=== PATIENT | male | born 1965 | race Caucasian/White ===

== ENCOUNTER 2016-12-21 20:09 | Inpatient (IN) | payer OTHER ==
[~2016-12-21] VITALS: Ht 182.9 cm; Wt 91.5 kg
[2016-12-21 22:47] VITALS: PULSE 85
[2016-12-21 22:49] VITALS: Ht 182.9 cm; Wt 91.5 kg
[2016-12-21 22:55] VITALS: BP 115/73; RESP 18
[2016-12-21 23:54] VITALS: BP 117/74; RESP 18
[2016-12-22] VITALS (11 sets, daily range): BP systolic 107–125; BP diastolic 65–73; PULSE 77–92; RESP 18–20
[2016-12-22] MEDS ORDERED: NITROGLYCERIN (SL) 0.4 MG TAB SL PRN (01:00)
[2016-12-22] MEDS ORDERED: morphine 2 MG INJ IV PRN (01:00)
[2016-12-22] MEDS ORDERED: HYDROCODONE/APAP (7.5/325) TAB PO PRN (01:00)
[2016-12-22] MEDS ORDERED: KETO5DRO59 OP (07:32)
[2016-12-22] MEDS ORDERED: IBUP-1542 PO (07:32)
[2016-12-22] MEDS ORDERED: DICL50TA2 PO (07:32)
[2016-12-22 08:12] LABS: BASOPHILS % 0.3 % (0.0-2.0); EOSINOPHILS # 0.5 10^3/ul (0.0-0.5); EOSINOPHILS % 4.1 % (0.0-7.0); HEMATOCRIT 38.3 % (42.0-52.0); HEMOGLOBIN 12.4 g/dl (14.0-18.0); LYMPHOCYTES # 1.6 10^3/ul (0.8-2.9); LYMPHOCYTES % 13.6 % (15.0-51.0); MEAN CORPUSCULAR HEMOGLOBIN 29.5 pg (29.0-33.0); MEAN CORPUSCULAR HGB CONC 32.4 g/dl (32.0-37.0); MEAN CORPUSCULAR VOLUME 91.2 fl (82.0-101.0); MEAN PLATELET VOLUME 9.9 fl (7.4-10.4); MONOCYTE # 1.1 10^3/ul (0.3-0.9); MONOCYTES % 8.7 % (0.0-11.0); NEUTROPHIL # 8.8 10^3/ul (1.6-7.5); PLATELET COUNT 548 10^3/UL (140-415); RED CELL DISTRIBUTION WIDTH 13.8 % (11.5-14.5); WHITE BLOOD COUNT 12.1 10^3/ul (4.8-10.8)
[2016-12-22 08:32] LABS: ALBUMIN 3.8 g/dl (3.3-4.9); BILIRUBIN,INDIRECT 0.3 mg/dl (0-1.1); BILIRUBIN,TOTAL 0.3 mg/dl (0.2-1.3); CALCIUM 9.8 mg/dl (8.4-10.2); CHOL/HDL RATIO 7.9 RATIO; CREATININE 0.66 mg/dl (0.61-1.24); POTASSIUM 4.9 mmol/L (3.5-5.1); TOTAL PROTEIN 7.6 g/dl (6.1-8.1)
[2016-12-22] MEDS: NAPROXEN 500 MG TAB PO SCH ×2 (09:19→21:50)
--- NOTE | 2016-12-22 10:51 | PN ---
Date/Time of Note Date/Time of Note DATE: 12/22/16 TIME: 10:46 Assessment/Plan VTE Prophylaxis VTE Prophylaxis Intervention: SCD's Lines/Catheters IV Catheter Type (from Nrsg): Saline Lock Assessment/Plan Chief Complaint/Hosp Course 51 y/o with 1. Chest pain Pericarditis with mod - large Pericardial effusion likely viral after Bronchitis/pneumonia, r/o autoimmune/HIV/ TB 2 Elevated LFT with alk phos r/o Hepatitis 3 Chronic back pain with DJD 4 Smoker Recs - Will check Repeat ECHO, pt might need Pericardiocentesis - Add colchine to NSAID - Add pepcid - esr, crp, JAMILA, HIV, Hep panel, Chest Xray , PPD - Spoke to Dr Vail who will see patient Problems: Subjective 24 Hr Interval Summary Free Text/Dictation Some chest pain when take deep breath No sob Exam/Review of Systems Vital Signs Vitals Vital Signs Date Time Temp Pulse Resp B/P Pulse Ox O2 Delivery O2 Flow Rate FiO2 12/22/16 08:25 92 12/22/16 07:49 98.7 18 115/72 97 Intake and Output 12/21/16 12/21/16 12/22/16 15:00 23:00 07:00 Intake Total 120 ml Balance 120 ml Exam Gen:awake,alert Neck:supple CVS:Regular rate and rthym Lungs:decreased breath sounds at bases Abdomen:soft, non tender Ext : no edema Results Result Diagram: 12/22/16 0715 12/22/16 0711 Results 24 hrs Laboratory Tests Test 12/22/16 07:11 12/22/16 07:15 Sodium Level 139 Potassium Level 4.9 Chloride Level 102 Carbon Dioxide Level 30 Anion Gap 12 Blood Urea Nitrogen 15 Creatinine 0.66 Glucose Level 102 Calcium Level 9.8 Total Bilirubin 0.3 Direct Bilirubin 0.00 Indirect Bilirubin 0.3 Aspartate Amino Transf (AST/SGOT) 29 Alanine Aminotransferase (ALT/SGPT) 94 H Alkaline Phosphatase 203 H Total Protein 7.6 Albumin 3.8 Globulin 3.80 H Albumin/Globulin Ratio 1.00 Triglycerides Level 94 Cholesterol Level 166 LDL Cholesterol, Calculated 126 HDL Cholesterol 21 L Cholesterol/HDL Ratio 7.9 White Blood Count 12.1 H Red Blood Count 4.20 L Hemoglobin 12.4 L Hematocrit 38.3 L Mean Corpuscular Volume 91.2 Mean Corpuscular Hemoglobin 29.5 Mean Corpuscular Hemoglobin Concent 32.4 Red Cell Distribution Width 13.8 Platelet Count 548 H Mean Platelet Volume 9.9 Neutrophils % 73.0 Lymphocytes % 13.6 L Monocytes % 8.7 Eosinophils % 4.1 Basophils % 0.3 Nucleated Red Blood Cells % 0.0 Neutrophils # 8.8 H Lymphocytes # 1.6 Monocytes # 1.1 H Eosinophils # 0.5 Basophils # 0.0 Nucleated Red Blood Cells # 0.0 Medications Medications Current Medications Naproxen (Naprosyn) 500 mg BID PO Last administered on 12/22/16t 09:19; Admin Dose 500 MG; Start 12/22/16 at 09:00 Acetaminophen/ Hydrocodone Bitart ([place] (7.5-325)) 1 tab Q6H PRN PO PAIN LEVEL 4-6; Start 12/22/16 at 01:00 Morphine Sulfate (morphine) 2 mg Q4H PRN IV SEVERE PAIN LEVEL 7-10; Start 12/22 at 01:00 Nitroglycerin (Nitroglycerin (Sl Tab) 0.4 Mg) 1 tab Q5M PRN SL ANGINA; Start at 01:00 Famotidine (Pepcid) 20 mg BID NGT ; Start 12/22/16 at 11:00; Status UNV Colchicine (Colchicine) 0.6 mg BID PO ; Start 12/22/16 at 11:00; Status UNV Ondansetron HCl (Zofran Inj) 4 mg Q4H PRN IV NAUSEA AND/OR VOMITING; Start at 11:00; Status UNV JIMI BYRNE MD Dec 22, 2016 10:51
[2016-12-22] MEDS: FAMOTIDINE 20 MG TAB PO SCH ×2 (11:00→21:00)
[2016-12-22] MEDS ORDERED: ONDANSETRON 4 MG INJ IV PRN (11:00)
[2016-12-22] MEDS ORDERED: ZOLPIDEM 5 MG TAB PO PRN (11:00)
[2016-12-22] MEDS ORDERED: DOCUSATE SODIUM 100 MG CAP PO PRN (11:00)
[2016-12-22] MEDS ORDERED: MAGNESIUM HYDROXIDE 30ML CUP PO PRN (11:00)
[2016-12-22] MEDS: COLCHICINE 0.6 MG TAB PO SCH ×2 (12:00→21:44)
--- NOTE | 2016-12-22 12:55 | RADRPT ---
PROCEDURE: Chest radiograph CLINICAL INDICATION: Pericardial effusion. Concern for pleural effusion. COMPARISON: None relevant listed. TECHNIQUE: Single frontal chest radiograph. FINDINGS: No pneumonia. Small left pleural effusion. The cardiac silhouette is rounded, consistent with provided history of pleural effusion. The heart is not enlarged. No suspicious bone lesion. IMPRESSION: Small left pleural effusion. RPTAT: [facility] Physician Cash Date Time Electronically viewed and signed by Derick Rodarte Physician on 12/22/2016 12:55 LG/
[2016-12-22 13:29] LABS: HAAIG REFLEX REFLEX FILED
--- NOTE | 2016-12-22 13:33 | HP ---
DATE OF ADMISSION: 12/21/2016 REASON FOR ADMISSION: Transfer from [facility] for pericardial effusion. HISTORY OF PRESENT ILLNESS: This is a 51-year-old male with a past medical history of chronic back pain, who initially presented to [facility] on December 09 secondary to complaining of chest pain. He was having some fevers 10 days ago. At that time, he underwent stress echocardiography, which showed no problems. He was discharged home with Cardiology. He presented again on December 19 to [facility] complaining of pleuritic chest pain with shortness of breath, dizziness and imaging. Echo at that time, showed the presence of [id number] pericardial effusion and by CT, which was not present on the prior admission. He was admitted with a presumptive diagnosis of pericarditis. According to the patient when he was discharged on December 09 he was discharged with an antibiotic for 7 days. He took the antibiotic course for 7 days and after the 3rd day, he started having fevers again and having chest pain and shortness of breath and came in to the emergency department. At [facility], he was started on naproxen. He took it for 3 days and after that, according to the patient, they repeated echocardiogram and which showed that the pericardial effusion was the same and was sent in to [facility] for insurance reasons. PAST MEDICAL HISTORY: 1. The patient has keratoconus of the eyes, status post surgery. 2. Chronic back pain with a CT of the lumbar spine that was done on December 19 showing multilevel degenerative changes, severe right foraminal stenosis at L5-S1, indeterminate 90 mm osseous lesion at S1, bilateral pleural effusions, left renal cyst and small right renal lesion, which is probably a small cyst. ALLERGIES: NONE. MEDICATIONS: Taking at home were: 1. Ketotifen 0.025 percent ophthalmic solution. 2. Baclofen 25 mg capsule 100 mg b.i.d. p.r.n. back pain. 3. Ibuprofen 600 mg oral t.i.d., which was started at [facility]. PAST SURGICAL HISTORY: Patient had eye surgery for keratoconus. SOCIAL HISTORY: Patient is a smoker, smokes 10-14 cigarettes per day, but has cut down. Denies any history of alcohol, any drug abuse. FAMILY HISTORY: No history of cardiac disease in the family. REVIEW OF SYSTEMS: Patient denied any sick contacts. Denies any joint pains. Denies any headache, any blurry vision. Denies any ear problems. Patient complains of pleuritic chest pain associated with deep breath, and some shortness of breath. Denies any dizziness currently. Denies any nausea, vomiting, diarrhea. Denies any hematemesis or any melena. No bright red blood per rectum. Denies any focal neurological deficits. PHYSICAL EXAMINATION: GENERAL: Awake, alert, oriented x4. Does not appear to be in any acute distress. Very pleasant male. VITAL SIGNS: Temperature 98.7, heart rate 86, respirations 18, blood pressure 115/72, saturating 97 percent on room air. HEENT: Pupils equal, round, reactive to light. NECK: Supple. No JVD. HEART: Regular rate, rhythm. No murmur, rub, or gallop. LUNGS: Clear to auscultate bilaterally. ABDOMEN: Soft, nontender, nondistended. Positive normoactive bowel sounds. EXTREMITIES: No clubbing, cyanosis, or edema. DIAGNOSTIC DATA: BMP within normal limits. BUN of 15, creatinine 0.66. AST of 29, ALT of 94, alkaline phosphatase 203, albumin 3.8. 21. White count 12.1, hemoglobin 12.4, platelet count 548. CT of the lumbar spine at [facility] showed no evidence of acute fracture, normal alignment, multilevel degenerative changes, severe right foraminal stenosis L5-S1 suggestive of a neural impingement, indeterminate 19 mm osseus lesions of S1, left renal cyst and small right renal lesion, which is a small cyst, suggestion of bilateral pleural effusions. The patient also had a CT of the chest, abdomen and pelvis with contrast that showed a pericardial effusion was present measuring 2.5 cm in thickness, heart is normal in size, atelectasis. No lobar consolidations. No focal lesions were seen within the liver. Gallbladder was contracted. Chest x-ray showed enlarged cardiac silhouette. ASSESSMENT: This is a 51-year-old male presenting with: 1. Chest pain, shortness of breath, dizziness. The patient had a stress echocardiogram that was negative for any ischemia. The patient had troponins that were negative. The patient has echo and a CT that showed a [id number] pericardial effusion, which is 2.5 cm in thickness. Patient had bronchitis and pneumonia before, that could have led to pericarditis. Etiology is unknown. Patient does not have any hemodynamic compromise at this point. 2. Elevated LFTs. The patient had elevated LFTs with elevated alk phos. 3. Leukocytosis, likely secondary to #1. 4. Chronic back pain, with a history of multilevel degenerative disk disease. 5. History of keratoconus of the eyes. PLAN: At this period of time, patient is admitted to [facility]. The patient is currently on naproxen, which is causing him to have heartburn. We will start the patient on colchicine. We will repeat the echocardiogram. Dr. Vail with cardiology has already been informed. The patient might need pericardiocentesis based on the pericardial effusion on the echo. Rest of the treatment will depend on the patient's hospitalization course. Dictated By: MD FREDO Loza/zoey/clara /Document#: [id number]
[2016-12-22 14:33] LABS: TROPONIN-I < 0.012 ng/ml (0.00-0.12)
[2016-12-22 14:44] LABS: C-REACTIVE PROTEIN 17.6 mg/dl (0.0-0.9)
[2016-12-22 14:50] LABS: HEPATITIS B CORE ANTIBODY NEGATIVE (NEGATIVE)
[2016-12-22] MEDS ORDERED: CALCIUM CARBONATE 500 MG CHEW TAB PO PRN (20:30)
[2016-12-22] MEDS ORDERED: FAMOTIDINE 20 MG TAB PO SCH (21:00)
[2016-12-22 21:06] LABS: TIME 2100
[2016-12-23] VITALS (11 sets, daily range): BP systolic 113–140; BP diastolic 60–70; PULSE 75–95; RESP 16–18
--- NOTE | 2016-12-23 00:09 | CONS ---
DATE OF ADMISSION: 12/21/2016 DATE OF CONSULTATION: 12/22/2016 REFERRING PHYSICIAN: Maria C Coker MD REASON FOR CONSULTATION: Persistent, vvtgnzbx-mv-nyevh pericardial effusion in the context of likely viral pericarditis. PATIENT'S PROFILE AND HISTORY OF PRESENT ILLNESS: The patient is a 51-year-old [place] male with a few medical conditions. Two weeks ago he was admitted to another hospital with chest pain and fever. An echocardiogram at the other hospital ([place]) documented apparently circumferential, moderate size to large pericardial effusion. The working diagnosis was of likely viral pericarditis or autoimmune pericarditis. The patient was started on treatment with NSAIDs. The patient's condition either gradually improved somewhat or none. A computed tomography of the chest was also done, confirming the oqypvyeh-pm-eaycu pericardial effusion. The patient was initially treated with antibiotic for a week, without resolution of the condition. In fact, according to the admitting physician, fevers started about that time. With the agreement of the patient, a decision at [facility] was made to transfer to [facility]. REVIEW OF SYSTEMS: At this time, the patient appears stable. He has mild "aches and pains," none over the cardiac area but in other parts of the chest. He feels slightly weak or below his normal level of health. He also appears to be concerned about the condition. The patient denies chest pain, shortness of breath, orthopnea (needs to sleep elevated), or lower extremity edema. His "blood work" by the other hospital and subsequently here documents abnormal liver function tests. Review of systems as described above. PAST MEDICAL HISTORY: The patient has spinal disorder at several levels, with multilevel degenerative spinal changes, severe in the lumbosacral area. He also has asymptomatic bilateral pleural effusions, as well as renal cysts. MEDICATIONS: Naproxen 500 mg twice a day. ALLERGIES: NO KNOWN DRUG ALLERGIES. HOME MEDICATIONS: 1. Ketotifen 0.025 percent ophthalmic solution (for keratoconus of eyes). 2. Baclofen mg twice a day. 3. Ibuprofen 600 mg 3 times a day, which was started in [place] prior to transfer. FAMILY MEDICAL HISTORY: Noncontributory. SOCIAL HISTORY: The patient is a chronic cigarette smoker, of moderate degree (10-14 cigarettes per day). He denies history of alcohol or drug use. His marital status was not inquired. PAST SURGICAL HISTORY: Eye surgery bilaterally for keratoconus. PHYSICAL EXAMINATION: GENERAL APPEARANCE: The patient is an athletic-appearing, middle- aged man, who is in no acute distress. VITAL SIGNS: Height 6 feet, weight 91.5 kg. Blood pressure 122/69 mmHg, heart rate 82 bpm, regular (variable), temperature is 98.2 degrees F. SKIN: Warm and dry, not clammy. HEENT: Normocephalic. Eyes: FILIBERTO. Conjunctivae and eyelids are normal. Sclerae are anicteric. Oral mucosa moist, with no cyanosis. NECK: Supple, without thyromegaly or lymphadenopathy. Trachea is midline. There is no jugular vein distention. Carotid pulses are normal and equal, with no bruits. There is no evidence in sitting position of elevated jugular vein pressure. CHEST: Symmetric, with equal expansion. LUNGS: Clear to auscultation, with no rales or wheezes. HEART: PMI not palpated. There is no left precordial systolic heave. Regular rate and rhythm. Normal S1, S2. There is no murmur or rub. ABDOMEN: Soft, nontender, nondistended. EXTREMITIES: No edema. Peripheral pulses are palpable in all limbs. LABORATORY: EKG: A full 12-lead EKG is not available in the chart. On the monitor, he is normal sinus rhythm, with no arrhythmia and with normal QRS configuration. Hemoglobin 12.4, hematocrit 38.3 percent, WBC 12,100. All chemistry (electrolytes, renal function tests) have normal values. Anion gap is 12. Glucose is 102. Bilirubin is normal. AST and ALT are elevated approximately 3 times over the upper normal limits (fact known before admission). Serum proteins are normal. Cholesterol is 166, LDL 126, triglycerides 94. ASSESSMENT: 1. Persistent, moderate (to large?) pericarditis of unknown etiology (presumed viral). 2. Mild weakness and malaise due to the condition. 3. Abnormal transaminases. RECOMMENDATIONS: 1. Continue Naproxen 500 mg twice a day. (Ibuprofen 600-800 mg 3 times a day was also an excellent choice that was used before). 2. Add colchicine twice a day. 3. Add H2 blockers, Tagamet, ranitidine or famotidine to prevent GI irritation. 4. Consider proton pump inhibitors. Thank you very much for asking me to participate in the care of this patient. Effusive pericarditis of this type, unfortunately, may persist quite long. Some of the cases which are accompanied with moderate or large effusion may see persistent pericardial effusion, even after the symptoms are relieved. As long as the patient has no negative hemodynamic changes, the pericardial effusion should not be tapped unless there is a suspicion for a different etiology that has to be elucidated. Dictated By: ROBBIE YANG MD /zoey/maria fernanda /Document#: [id number] CC: Maria C Coker MD;*EndCC*
[2016-12-23 07:38] LABS: BASOPHILS % 0.3 % (0.0-2.0); EOSINOPHILS # 0.4 10^3/ul (0.0-0.5); EOSINOPHILS % 3.6 % (0.0-7.0); HEMATOCRIT 37.9 % (42.0-52.0); HEMOGLOBIN 12.4 g/dl (14.0-18.0); LYMPHOCYTES # 1.6 10^3/ul (0.8-2.9); LYMPHOCYTES % 13.6 % (15.0-51.0); MEAN CORPUSCULAR HGB CONC 32.7 g/dl (32.0-37.0); MEAN CORPUSCULAR VOLUME 91.5 fl (82.0-101.0); MEAN PLATELET VOLUME 9.7 fl (7.4-10.4); MONOCYTES % 9.1 % (0.0-11.0); NEUTROPHIL # 8.4 10^3/ul (1.6-7.5); NEUTROPHILS % 72.9 % (39.0-77.0); PLATELET COUNT 556 10^3/UL (140-415); RED BLOOD COUNT 4.14 10^6/ul (4.70-6.10); RED CELL DISTRIBUTION WIDTH 13.5 % (11.5-14.5); WHITE BLOOD COUNT 11.5 10^3/ul (4.8-10.8)
[2016-12-23 08:01] LABS: ALBUMIN 3.9 g/dl (3.3-4.9); ALBUMIN/GLOBULIN RATIO 1.05; BILIRUBIN,INDIRECT 0.1 mg/dl (0-1.1); BILIRUBIN,TOTAL 0.1 mg/dl (0.2-1.3); CALCIUM 9.4 mg/dl (8.4-10.2); CREATININE 0.67 mg/dl (0.61-1.24); POTASSIUM 4.7 mmol/L (3.5-5.1); TOTAL PROTEIN 7.6 g/dl (6.1-8.1)
[2016-12-23 08:06] LABS: MAGNESIUM 2.3 mg/dl (1.7-2.5); PHOSPHORUS 4.4 mg/dl (2.5-4.9)
[2016-12-23] MEDS: NAPROXEN 500 MG TAB PO SCH ×2 (08:10→20:50)
[2016-12-23] MEDS: COLCHICINE 0.6 MG TAB PO SCH ×2 (08:10→20:50)
[2016-12-23] MEDS: FAMOTIDINE 20 MG TAB PO SCH ×2 (08:11→20:51)
--- NOTE | 2016-12-23 10:01 | PN ---
Date/Time of Note Date/Time of Note DATE: 12/23/16 TIME: 10:00 Assessment/Plan VTE Prophylaxis VTE Prophylaxis Intervention: ambulation Lines/Catheters IV Catheter Type (from Nrs): Saline Lock Urinary Cath still in place: No Assessment/Plan Chief Complaint/Hosp Course 51 y/o with 1. Chest pain Pericarditis with mod - large Pericardial effusion likely viral after Bronchitis/pneumonia, r/o autoimmune/HIV/ TB 2 Elevated LFT with alk phos Hep panel negative 3 Chronic back pain with DJD 4 Smoker Recs - c/w Naproxen and Colchine - c/w Pepcid - Spoke to Dr Aguilar klein f/u on repeat ECHO today - ESR , CRP elevated, HIV and Hep panel negative Problems: Subjective 24 Hr Interval Summary Free Text/Dictation Chest pain is resolved Exam/Review of Systems Vital Signs Vitals Vital Signs Date Time Temp Pulse Resp B/P Pulse Ox O2 Delivery O2 Flow Rate FiO2 12/23/16 08:24 88 12/23/16 08:07 98.2 18 117/69 98 12/22/16 21:30 Room Air Intake and Output 12/22/16 12/22/16 12/23/16 15:00 23:00 07:00 Intake Total 800 ml 240 ml Balance 800 ml 240 ml Exam Gen:awake,alert Neck:supple CVS:Regular rate and rthym Lungs:decreased breath sounds at bases Abdomen:soft, non tender Ext : no edema Results Result Diagram: 12/23/16 0724 12/23/16 0724 Results 24 hrs Laboratory Tests Test 12/22/16 12:30 12/22/16 12:39 12/22/16 20:55 12/23/16 07:24 Troponin I < 0.012 C-Reactive Protein 17.6 H Hepatitis B Surface Antigen NEGATIVE Hepatitis B Core Total Antibody NEGATIVE Hepatitis C Antibody NEGATIVE HIV (1&2) Antibody NEGATIVE Erythrocyte Sedimentation Rate 68 H TB Skin Test Induration Pending TB Skin Test Administer Date 12/22/2016 TB Skin Test Administer Time 2100 TB Skin Test Injection Site Right Upper Forearm White Blood Count 11.5 H Red Blood Count 4.14 L Hemoglobin 12.4 L Hematocrit 37.9 L Mean Corpuscular Volume 91.5 Mean Corpuscular Hemoglobin 30.0 Mean Corpuscular Hemoglobin Concent 32.7 Red Cell Distribution Width 13.5 Platelet Count 556 H Mean Platelet Volume 9.7 Neutrophils % 72.9 Lymphocytes % 13.6 L Monocytes % 9.1 Eosinophils % 3.6 Basophils % 0.3 Nucleated Red Blood Cells % 0.0 Neutrophils # 8.4 H Lymphocytes # 1.6 Monocytes # 1.0 H Eosinophils # 0.4 Basophils # 0.0 Nucleated Red Blood Cells # 0.0 Sodium Level 141 Potassium Level 4.7 Chloride Level 107 Carbon Dioxide Level 25 Anion Gap 14 Blood Urea Nitrogen 18 Creatinine 0.67 Glucose Level 96 Calcium Level 9.4 Phosphorus Level 4.4 Magnesium Level 2.3 Total Bilirubin 0.1 L Direct Bilirubin 0.00 Indirect Bilirubin 0.1 Aspartate Amino Transf (AST/SGOT) 22 Alanine Aminotransferase (ALT/SGPT) 76 H Alkaline Phosphatase 185 H Total Protein 7.6 Albumin 3.9 Globulin 3.70 H Albumin/Globulin Ratio 1.05 Medications Medications Current Medications Naproxen (Naprosyn) 500 mg BID PO Last administered on 12/23/16 08:10; Admin Dose 500 MG; Start 12/22/16 at 09:00 Acetaminophen/ Hydrocodone Bitart ([place] (7.5-325)) 1 tab Q6H PRN PO PAIN LEVEL 4-6; Start 12/22/16 at 01:00 Morphine Sulfate (morphine) 2 mg Q4H PRN IV SEVERE PAIN LEVEL 7-10; Start 12/22 at 01:00 Nitroglycerin (Nitroglycerin (Sl Tab) 0.4 Mg) 1 tab Q5M PRN SL ANGINA; Start at 01:00 Famotidine (Pepcid) 20 mg BID PO ; Start 12/22/16 at 11:00 Colchicine (Colchicine) 0.6 mg BID PO Last administered on 12/23/16 08:10; Admin Dose 0.6 MG; Start 12/22/16 at 12:00 Ondansetron HCl (Zofran Inj) 4 mg Q4H PRN IV NAUSEA AND/OR VOMITING; Start at 11:00 Docusate Sodium (Colace) 100 mg Q12H PRN PO CONSTIPATION; Start 12/22/16 at 11: 00 Magnesium Hydroxide (Milk Of Mag) 30 ml DAILY PRN PO CONSTIPATION; Start at 11:00 Zolpidem Tartrate (Ambien) 5 mg QHS PRN PO SLEEP; Start 12/22/16 at 11:00 Calcium Carbonate (Tums) 500 mg QID PRN PO HEARTBURN; Start 12/22/16 at 20:30 JIMI BYRNE MD Dec 23, 2016 10:01
--- NOTE | 2016-12-23 17:28 | CONS ---
Date/Time of Note Date/Time of Note DATE: 12/23/16 TIME: 17:20 Assessment/Plan Assessment/Plan Chief Complaint/Hosp Course IMP: 1. Pericardial effusion-by osh echo 2.Chest pain-improved. Per report secondary to pericarditis 3.HTN-borderline 4.Malaise 5. Increased LFT's 6. Pleural effusion-small REcc: -Tele -serial ecg's -will f/u echo to assess need for possible pericardiocentesis but currently no signs of tamponade -Continue current colchicine/NSAIDS Problems: Consultation Date/Type/Reason Admit Date/Time Dec 21, 2016 at 22:29 Initial Consult Date 12/22/2016 Type of Consultation: Cardiology Reason for Consultation chest pain Referring Provider: JIMI BYRNE MD Exam/Review of Systems Vital Signs Vitals Vital Signs Date Time Temp Pulse Resp B/P Pulse Ox O2 Delivery O2 Flow Rate FiO2 12/23/16 16:20 98.1 91 18 140/66 99 12/22/16 21:30 Room Air Intake and Output 12/22/16 12/22/16 12/23/16 15:00 23:00 07:00 Intake Total 800 ml 240 ml Balance 800 ml 240 ml Exam Review of Systems: CONSTITUTIONAL: No fevers, chills. PULMONARY: No sob CARDIOVASCULAR: No chest pain/palpitations GASTROINTESTINAL: No nausea/vomiting. GENITOURINARY: No hematuria/dysuria. MUSCULOSKELETAL: No myagias/arthalgias. PSYCHIATRIC: The patient denies depression. NEUROLOGIC: No weakness Constitutional: alert, oriented Psych: no complaints Head: normocephalic ENMT: mucosa pink and moist Neck: jvd (9 cm water), supple Respiratory: clear to auscultation Cardiovascular: regular rate and rhythm Gastrointestinal: non-tender, soft Musculoskeletal: muscle tone (normal) Extremities: edema (none) Neurological: other (No focal deficits) Results Result Diagram: 12/23/16 0724 12/23/16 0724 Results 24 hrs Laboratory Tests Test 12/22/16 20:55 12/23/16 07:24 TB Skin Test Induration Pending TB Skin Test Administer Date 12/22/2016 TB Skin Test Administer Time 2100 TB Skin Test Injection Site Right Upper Forearm White Blood Count 11.5 H Red Blood Count 4.14 L Hemoglobin 12.4 L Hematocrit 37.9 L Mean Corpuscular Volume 91.5 Mean Corpuscular Hemoglobin 30.0 Mean Corpuscular Hemoglobin Concent 32.7 Red Cell Distribution Width 13.5 Platelet Count 556 H Mean Platelet Volume 9.7 Neutrophils % 72.9 Lymphocytes % 13.6 L Monocytes % 9.1 Eosinophils % 3.6 Basophils % 0.3 Nucleated Red Blood Cells % 0.0 Neutrophils # 8.4 H Lymphocytes # 1.6 Monocytes # 1.0 H Eosinophils # 0.4 Basophils # 0.0 Nucleated Red Blood Cells # 0.0 Sodium Level 141 Potassium Level 4.7 Chloride Level 107 Carbon Dioxide Level 25 Anion Gap 14 Blood Urea Nitrogen 18 Creatinine 0.67 Glucose Level 96 Calcium Level 9.4 Phosphorus Level 4.4 Magnesium Level 2.3 Total Bilirubin 0.1 L Direct Bilirubin 0.00 Indirect Bilirubin 0.1 Aspartate Amino Transf (AST/SGOT) 22 Alanine Aminotransferase (ALT/SGPT) 76 H Alkaline Phosphatase 185 H Total Protein 7.6 Albumin 3.9 Globulin 3.70 H Albumin/Globulin Ratio 1.05 Medications Medications Current Medications Naproxen (Naprosyn) 500 mg BID PO Last administered on 12/23/16 08:10; Admin Dose 500 MG; Start 12/22/16 at 09:00 Acetaminophen/ Hydrocodone Bitart ([place] (7.5-325)) 1 tab Q6H PRN PO PAIN LEVEL 4-6; Start 12/22/16 at 01:00 Morphine Sulfate (morphine) 2 mg Q4H PRN IV SEVERE PAIN LEVEL 7-10; Start 12/22 at 01:00 Nitroglycerin (Nitroglycerin (Sl Tab) 0.4 Mg) 1 tab Q5M PRN SL ANGINA; Start at 01:00 Famotidine (Pepcid) 20 mg BID PO ; Start 12/22/16 at 11:00 Colchicine (Colchicine) 0.6 mg BID PO Last administered on 12/23/16 08:10; Admin Dose 0.6 MG; Start 12/22/16 at 12:00 Ondansetron HCl (Zofran Inj) 4 mg Q4H PRN IV NAUSEA AND/OR VOMITING; Start at 11:00 Docusate Sodium (Colace) 100 mg Q12H PRN PO CONSTIPATION; Start 12/22/16 at 11: 00 Magnesium Hydroxide (Milk Of Mag) 30 ml DAILY PRN PO CONSTIPATION; Start at 11:00 Zolpidem Tartrate (Ambien) 5 mg QHS PRN PO SLEEP; Start 12/22/16 at 11:00 Calcium Carbonate (Tums) 500 mg QID PRN PO HEARTBURN; Start 12/22/16 at 20:30 MONA CHAVEZ Dec 23, 2016 17:28
--- NOTE | 2016-12-23 18:34 | RADRPT ---
Echocardiogram Report Patient Name: JENNIFER SAHU Gender: Male Date: 1965 Study Date: 22-Dec-2016 [employer] Analyst: Shantanu Aleman [facility] Location: 5541 Ref. Physician: CHU VARGAS Quality: Good Procedures: Transthoracic echocardiogram with complete 2D, M-Mode, and doppler examination. Indications: Pericarditis. 2D/M Mode Doppler Measurement Value Normal Ranges Measurement Value Normal Ranges LVIDd 2D 5.1 3.5 - 5.6 cm AV Peak Rickie 1.3 m/sec LVIDs 2D 2.5 2.1 - 4.1 cm AV Peak PG 6.5 mmHg LVPWd 2D 1.2 0.6 - 1.1 cm LVOT Peak Rickie 0.9 m/sec IVSd 2D 1.2 0.6 - 1.1 cm LVOT Peak PG 3.1 mmHg AoR Diam 2D 2.8 2.0 - 3.7 cm MV E Peak Rickie 0.6 m/sec EDV 2D 125.5 cm3 MV A Peak Rickie 0.8 m/sec ESV 2D 16.4 cm3 MV E/A 0.8 LA Dimen 2D 3.4 2.3 - 4.0 cm MV Decel Time 201 msec MV Decel Dixie 3 MV E/A 0.8 TR Peak Rickie 2.6 m/sec TR Peak PG 27.7 mmHg RVSP 31.0 mmHg Findings Left Ventricle: Normal left ventricular systolic function. Normal left ventricular cavity size. Mild concentric left ventricular hypertrophy. Ejection fraction is visually estimated at 60 %. Tissue Doppler/Mitral Doppler indices are consistent with impaired relaxation (Stage I diastolic dysfunction). Right Ventricle: Normal right ventricular size. Normal right ventricular systolic function. Left Atrium: The left atrium is normal in size. Right Atrium: The right atrium is normal in size. Mitral Valve: Normal appearance and function of the mitral valve with trace physiologic regurgitation. Aortic Valve: Normal appearance of the aortic valve. No significant aortic stenosis or insufficiency. Tricuspid Valve: Normal appearance of the tricuspid valve. Estimated peak PA systolic pressure 31 mmHg. There is mild tricuspid regurgitation. Pulmonic Valve: Normal pulmonic valve appearance. There is trace pulmonic regurgitation. Pericardium: Small pericardial effusion. Aorta: Normal aortic root. IVC: Normal size and normal respiratory collapse consistent with normal right atrial pressure. Conclusions 1.Normal left ventricular systolic function. Normal left ventricular cavity size. Mild concentric left ventricular hypertrophy. Ejection fraction is visually estimated at 60 %. Tissue Doppler/Mitral Doppler indices are consistent with impaired relaxation (Stage I diastolic dysfunction). 2.Normal right ventricular size. Normal right ventricular systolic function. 3.Normal appearance and function of the mitral valve with trace physiologic regurgitation. 4.Normal appearance of the tricuspid valve. Estimated peak PA systolic pressure 31 mmHg. There is mild tricuspid regurgitation. 5.Normal pulmonic valve appearance. There is trace pulmonic regurgitation. 6.Small to moderate pericardial effusion. Electronically Signed By: Ruben Sheikh 23-Dec-2016 18:33:36 -0700 Patient Name: JENNIFER SAHU Study Date: 22-Dec-[id number]
[2016-12-24] VITALS (10 sets, daily range): BP systolic 112–134; BP diastolic 59–74; PULSE 83–94; RESP 16–18
[2016-12-24] MEDS: COLCHICINE 0.6 MG TAB PO SCH (08:20)
[2016-12-24] MEDS: NAPROXEN 500 MG TAB PO SCH (08:20)
[2016-12-24] MEDS: FAMOTIDINE 20 MG TAB PO SCH (08:24)
--- NOTE | 2016-12-24 09:49 | PN ---
Date/Time of Note Date/Time of Note DATE: 12/24/16 TIME: 09:49 Assessment/Plan VTE Prophylaxis VTE Prophylaxis Intervention: ambulation Lines/Catheters IV Catheter Type (from Nrsg): Saline Lock Urinary Cath still in place: No Assessment/Plan Chief Complaint/Hosp Course 51 y/o with 1. Chest pain Pericarditis with mod - large Pericardial effusion likely viral after Bronchitis/pneumonia, r/o autoimmune/HIV/ TB 2 Elevated LFT with alk phos Hep panel negative 3 Chronic back pain with DJD 4 Smoker Recs - c/w Naproxen and Colchine - c/w Pepcid - Spoke to Dr Sheikh ; ECHO shows small to mod effusion, no need to pericardiocentesis - d/c home today to f/u in office in 2 weeks - ESR , CRP elevated, HIV and Hep panel negative Problems: Exam/Review of Systems Vital Signs Vitals Vital Signs Date Time Temp Pulse Resp B/P Pulse Ox O2 Delivery O2 Flow Rate FiO2 12/24/16 08:15 94 12/24/16 08:00 98.2 18 118/65 98 12/22/16 21:30 Room Air Intake and Output 12/23/16 12/23/16 12/24/16 15:00 23:00 07:00 Intake Total 600 ml 400 ml Balance 600 ml 400 ml Exam Gen:awake,alert Neck:supple CVS:Regular rate and rthym Lungs:Clear Abdomen:soft, non tender Ext : no edema Results Result Diagram: 12/23/16 0724 12/23/16 0724 Medications Medications Current Medications Naproxen (Naprosyn) 500 mg BID PO Last administered on 12/24/16t 08:20; Admin Dose 500 MG; Start 12/22/16 at 09:00 Acetaminophen/ Hydrocodone Bitart (Tamiment (7.5-325)) 1 tab Q6H PRN PO PAIN LEVEL 4-6; Start 12/22/16 at 01:00 Morphine Sulfate (morphine) 2 mg Q4H PRN IV SEVERE PAIN LEVEL 7-10; Start 12/22 at 01:00 Nitroglycerin (Nitroglycerin (Sl Tab) 0.4 Mg) 1 tab Q5M PRN SL ANGINA; Start at 01:00 Famotidine (Pepcid) 20 mg BID PO ; Start 12/22/16 at 11:00 Colchicine (Colchicine) 0.6 mg BID PO Last administered on 12/24/16t 08:20; Admin Dose 0.6 MG; Start 12/22/16 at 12:00 Ondansetron HCl (Zofran Inj) 4 mg Q4H PRN IV NAUSEA AND/OR VOMITING; Start at 11:00 Docusate Sodium (Colace) 100 mg Q12H PRN PO CONSTIPATION; Start 12/22/16 at 11: 00 Magnesium Hydroxide (Milk Of Mag) 30 ml DAILY PRN PO CONSTIPATION; Start at 11:00 Zolpidem Tartrate (Ambien) 5 mg QHS PRN PO SLEEP; Start 12/22/16 at 11:00 Calcium Carbonate (Tums) 500 mg QID PRN PO HEARTBURN; Start 12/22/16 at 20:30 JIMI BYRNE MD Dec 24, 2016 09:49
[2016-12-24 12:22] LABS: ANA SCREEN NEGATIVE (NEGATIVE)
--- NOTE | 2016-12-24 14:47 | PDOCDIS ---
Discharge Instructions DIAGNOSIS Discharge Diagnosis Pericarditis CONDITION Patient Condition: Good HOME CARE INSTRUCTIONS: Diet Instructions: Low Fat /CholesterolSpecial Diet: cardiac ACTIVITY: Activity Restrictions: Slowly Increase Activity FOLLOW UP/APPOINTMENTS Follow-up Plan f/u Dr guillen in 2 weeks f/u pcp in 2-3 weeks Return to ER if has worseining chest pain/sob/fevers and chills JIMI BYRNE MD Dec 24, 2016 14:47
[2016-12-24] MEDS ORDERED: FAMO20TA18 PO (14:49)
[2016-12-24] MEDS ORDERED: COLC0.6T6 PO (14:49)
[2016-12-24] MEDS ORDERED: NAPR-260 PO (14:49)
--- NOTE | 2016-12-24 17:00 | DS ---
DATE OF ADMISSION: 12/21/2016 DATE OF DISCHARGE: FINAL DIAGNOSES: 1. Pericardial effusion, small which has [id number] decreased from small to moderate. 2. Chest pain, improved secondary to number one. 3. Hypertension, borderline. 4. Increased liver function tests. Hepatitis panel negative. 5. Small pleural effusion. 6. History of smoker. 7. History of chronic back pain with degenerative disc disease. HISTORY OF PRESENT ILLNESS: This is a 51-year-old male with past medical history of chronic back pain who Initially presented to [facility] on 12/09/2016, admitted complaining of chest pain. He was having some fever 10 days ago. At that time, he underwent echocardiography which showed no ischemia and he was discharged home with Cardiology. He presented again on 12/19/2016 to the same hospital complaining of chest pain associated with shortness of breath, dizziness and imaging echo at that time, showed the presence of [id number] pericardial effusion by a CT, which was not present on prior admission. He was given a diagnosis of pericarditis. He was started on naproxen at [facility] and was transferred to [facility] for insurance reasons. HOSPITAL COURSE: On admission, vital signs, the patient was afebrile, heart rate 86, respirations 18, blood pressure 115/72, saturating 97 percent on room air. Patient was awake, alert, oriented, in no acute distress. LABORATORY DATA: BNP within normal limits. BUN of 15, creatinine 0.6. AST 29, ALT 94, alkaline phosphate 203. White count was 12.1, hemoglobin 12.4, platelet count 543. The patient had a hepatitis panel that was sent which was negative. HIV was sent and negative. The patient had also a ESR that was sent and was elevated at 68. CRP was elevated to 17.6. Patient was seen by cardiology consultation with Dr. Sheikh and Dr. Funez. Patient was started on colchicine 0.6 b.i.d. and naproxen around the clock. The patient was feeling much better. Chest pain had improved. Had a repeat echo here which showed the effusion had decreased in size from small to moderate-sized, grade 1 diastolic dysfunction. EF was [address] Sheikh, patient is stable to be discharged home. DISCHARGE MEDICATIONS: 1. Patient will be given a colchicine 0.6 b.i.d. for 1 week. 2. Naproxen 500 b.i.d. for 2 weeks. PLAN: The patient will be seeing Dr. Sheikh in the office in 2 weeks for repeat echo. The patient was instructed to return to the ER if he has worsening chest pain, shortness of breath, fevers and chills. Dictated By: MD FREDO Loza/zoey/josé /Document#: [id number]
== END 2016-12-24 18:13 | disposition home or self-care (01) | DRG 316 ==
LOC: MS4 22:29
PROVIDERS: ADMIT Internal Medicine Nephrology; ATTEND Internal Medicine Nephrology
DX: I31.3 Pericardial effusion (noninflammatory) (principal); I10 Essential (primary) hypertension; G89.29 Other chronic pain; M54.9 Dorsalgia, unspecified; R07.9 Chest pain, unspecified; Z87.891 Personal history of nicotine dependence
CPT/HCPCS: 71010; 80053; 80061; 83735; 84100; 84484; 85025; 85651; 86038; 86140; 86580; 86703; 86704; 86709; 86803; 87081; 87340; 93306